=== PATIENT | male | born 1940 | race Caucasian/White ===

== ENCOUNTER 2017-11-26 15:12 | Inpatient (IN) | payer OTHER ==
[~2017-11-26] VITALS: Ht 177.8 cm; Wt 82.7 kg
[2017-11-26 15:42] VITALS: Ht 177.8 cm; Wt 82.7 kg
[2017-11-26 17:05] LABS: BASOPHIL % 0.4 % (0-2); PLATELET COUNT 271 x10^3mcL (130-400)
[2017-11-26 17:09] LABS: CALCIUM 8.6 mg/dL (8.5-10.1); CARBON DIOXIDE 28.3 mmol/L (21-32); CHLORIDE SERUM 104 mmol/L (98-107); CREATININE SERUM 1.2 mg/dL (0.7-1.3); GLUCOSE SERUM 92 mg/dL (74-106); POTASSIUM SERUM 3.9 mmol/L (3.5-5.1); SODIUM SERUM 139 mmol/L (136-145)
[2017-11-26 17:11] LABS: RED CELL DISTRIBUTION WIDTH 15.1 % (11.5-14.5)
[2017-11-26 17:14] LABS: ALBUMIN 3.2 g/dL (3.4-5.0); ALKALINE PHOSPHATASE 123 U/L (46-116); ALT/SGPT 33 U/L (16-63); AST/SGOT 22 U/L (15-37); BILIRUBIN TOTAL 0.4 mg/dL (0.20-1.00); TOTAL PROTEIN, SERUM 7.1 g/dL (6.4-8.2)
[2017-11-26] MEDS ORDERED: THE MEDICINE S400 I1 PO (17:34)
[2017-11-26] MEDS ORDERED: METOPROLOL TART25 M1 PO (17:34)
[2017-11-26] MEDS ORDERED: TAMSULOSIN HYD0.4 M1 PO (17:34)
[2017-11-26] MEDS ORDERED: ATORVASTATIN CA40 M1 PO (17:34)
[2017-11-26] MEDS ORDERED: FINASTERIDE5 M1 PO (17:34)
[2017-11-26] MEDS ORDERED: LISINOPRIL10 MG PO (17:34)
[2017-11-26] MEDS ORDERED: LAMISIL250 MG PO (17:35)
[2017-11-26] MEDS ORDERED: NOR5 PO (17:35)
[2017-11-26 18:23] LABS: UA SPECIFIC GRAVITY >=1.030 (1.005-1.035); microscopic required? YES; urine erythrocyte TRACE (NEGATIVE)
[2017-11-26 19:07] VITALS: BP 168/91
[2017-11-26] MEDS ORDERED: ARICEPT10 MG PO (19:26)
[2017-11-26 20:43] VITALS: BP 132/78
[2017-11-26 21:07] LABS: CHOLESTEROL/HDL RATIO 1.6; PHOSPHOROUS 3.9 mg/dL (2.5-4.9); T3 TOTAL 1.1 ng/mL
[2017-11-26 21:13] LABS: FREE T4 1.08 ng/dL (0.76-1.46); T4(THYROXINE) 8.7 ug/dL (4.7-13.3)
[2017-11-27 05:46] VITALS: BP 133/69
[2017-11-27 05:55] LABS: BASOPHIL % 0.7 % (0-2); PLATELET COUNT 250 x10^3mcL (130-400)
[2017-11-27 06:39] LABS: RED CELL DISTRIBUTION WIDTH 15.1 % (11.5-14.5)
[2017-11-27 08:31] LABS: CALCIUM 8.3 mg/dL (8.5-10.1); CARBON DIOXIDE 23.6 mmol/L (21-32); CHLORIDE SERUM 112 mmol/L (98-107); GLUCOSE SERUM 112 mg/dL (74-106); MAGNESIUM 1.9 mg/dL (1.8-2.4); PHOSPHOROUS 3.1 mg/dL (2.5-4.9); POTASSIUM SERUM 3.6 mmol/L (3.5-5.1); SODIUM SERUM 146 mmol/L (136-145)
[2017-11-27 09:02] VITALS: BP 128/83
[2017-11-27 13:40] VITALS: BP 154/83
[2017-11-27 21:33] VITALS: BP 149/87
[2017-11-28 06:11] VITALS: BP 150/75
[2017-11-28 10:11] VITALS: BP 108/62
[2017-11-28 14:22] LABS: BASOPHIL % 0.6 % (0-2); PLATELET COUNT 244 x10^3mcL (130-400)
[2017-11-28 14:23] LABS: RED CELL DISTRIBUTION WIDTH 15.4 % (11.5-14.5)
[2017-11-28 14:29] LABS: CALCIUM 8.9 mg/dL (8.5-10.1); CARBON DIOXIDE 27.4 mmol/L (21-32); CHLORIDE SERUM 111 mmol/L (98-107); CREATININE SERUM 1.1 mg/dL (0.7-1.3); GLUCOSE SERUM 84 mg/dL (74-106); MAGNESIUM 1.9 mg/dL (1.8-2.4); PHOSPHOROUS 3.5 mg/dL (2.5-4.9); POTASSIUM SERUM 3.8 mmol/L (3.5-5.1); SODIUM SERUM 147 mmol/L (136-145)
[2017-11-28 20:38] VITALS: BP 142/91
[2017-11-29 08:45] VITALS: BP 166/103
[2017-11-29 13:12] VITALS: BP 139/88
[2017-11-29 14:13] LABS: BASOPHIL % 0.6 % (0-2); PLATELET COUNT 226 x10^3mcL (130-400)
[2017-11-29 14:14] VITALS: BP 96/53
[2017-11-29 14:15] LABS: RED CELL DISTRIBUTION WIDTH 15.3 % (11.5-14.5)
[2017-11-29 14:29] LABS: ALKALINE PHOSPHATASE 98 U/L (46-116); ALT/SGPT 31 U/L (16-63); AST/SGOT 25 U/L (15-37); BILIRUBIN TOTAL 0.5 mg/dL (0.20-1.00); CALCIUM 8.6 mg/dL (8.5-10.1); CARBON DIOXIDE 28.4 mmol/L (21-32); CHLORIDE SERUM 107 mmol/L (98-107); CREATININE SERUM 1.5 mg/dL (0.7-1.3); GLUCOSE SERUM 92 mg/dL (74-106); MAGNESIUM 1.9 mg/dL (1.8-2.4); SODIUM SERUM 144 mmol/L (136-145); TOTAL PROTEIN, SERUM 6.2 g/dL (6.4-8.2)
[2017-11-29 14:32] LABS: ALBUMIN 2.8 g/dL (3.4-5.0)
[2017-11-29 16:19] VITALS: BP 136/67
[2017-11-29 18:09] VITALS: BP 105/61
[2017-11-29 19:30] VITALS: BP 124/58
[2017-11-30] VITALS (7 sets, daily range): BP systolic 70–97; BP diastolic 37–61
[2017-12-01 03:41] VITALS: BP 71/40
[2017-12-01 07:44] VITALS: BP 70/38
[2017-12-01 11:53] VITALS: BP 74/40
[2017-12-01 16:00] VITALS: BP 73/39
[2017-12-01 23:07] VITALS: BP 70/40
[2017-12-02 03:01] VITALS: BP 68/39
[2017-12-02 07:47] VITALS: BP 65/36
[2017-12-02 12:00] VITALS: BP 78/37
[2017-12-02 12:42] LABS: CARBON DIOXIDE 25.2 mmol/L (21-32); CHLORIDE SERUM 99 mmol/L (98-107); GLUCOSE SERUM 127 mg/dL (74-106); POTASSIUM SERUM 4.7 mmol/L (3.5-5.1); SODIUM SERUM 134 mmol/L (136-145)
[2017-12-02 12:43] LABS: CREATININE SERUM 5.6 mg/dL (0.7-1.3)
[2017-12-02 15:47] VITALS: BP 69/36
[2017-12-02 17:16] VITALS: BP 95/52
[2017-12-02 21:03] VITALS: BP 121/53
[2017-12-03 05:41] VITALS: BP 108/55
[2017-12-03 09:52] VITALS: BP 100/49
== END 2017-12-03 12:42 | disposition expired | DRG 56 ==
LOC: ED 15:12 → DU 17:56 → IC 11-29 13:08 → DU 12-02 15:45
PROVIDERS: Emergency Medicine; Family Medicine
PROC: 0BH17EZ Insertion of Endotracheal Airway into Trachea, Via Natural or Artificial Opening (ICD-10-PCS; principal; 2017-11-29)
PROC: 5A1935Z Respiratory Ventilation, Less than 24 Consecutive Hours (ICD-10-PCS; 2017-11-29)
PROC: 5A12012 Performance of Cardiac Output, Single, Manual (ICD-10-PCS; 2017-11-29)
DX: G30.9 Alzheimer's disease, unspecified (principal); G93.41 Metabolic encephalopathy; E43 Unspecified severe protein-calorie malnutrition; N17.0 Acute kidney failure with tubular necrosis; J96.01 Acute respiratory failure with hypoxia; J69.0 Pneumonitis due to inhalation of food and vomit; K85.90 Acute pancreatitis without necrosis or infection, unspecified; E44.1 Mild protein-calorie malnutrition; E87.1 Hypo-osmolality and hyponatremia; I46.9 Cardiac arrest, cause unspecified; F02.80 Dementia in other diseases classified elsewhere, unspecified severity, without behavioral disturbance, psychotic disturbance, mood disturbance, and anxiety; L89.321 Pressure ulcer of left buttock, stage 1; L89.311 Pressure ulcer of right buttock, stage 1; I25.10 Atherosclerotic heart disease of native coronary artery without angina pectoris; S70.312A Abrasion, left thigh, initial encounter; S80.212A Abrasion, left knee, initial encounter; I25.2 Old myocardial infarction; I10 Essential (primary) hypertension; K44.9 Diaphragmatic hernia without obstruction or gangrene; B35.1 Tinea unguium; N40.0 Benign prostatic hyperplasia without lower urinary tract symptoms; E78.5 Hyperlipidemia, unspecified; Z68.24 Body mass index [BMI] 24.0-24.9, adult; Z91.81 History of falling; Z87.891 Personal history of nicotine dependence; Z66 Do not resuscitate; Z51.5 Encounter for palliative care; W01.0XXA Fall on same level from slipping, tripping and stumbling without subsequent striking against object, initial encounter; Y92.009 Unspecified place in unspecified non-institutional (private) residence as the place of occurrence of the external cause
CPT/HCPCS: 36600; 82962; 83880; 84439; 97110-GP; 97116-GP; 97530-GP; A4628; J0461; J1940; J2060; J2250; J2270; J2543; J2704; J3486; J7030; J7620; Q0092